=== PATIENT | female | born 1985 | race Caucasian/White ===

== ENCOUNTER 2017-03-24 06:10 | Emergency (ER) | payer BC ==
[~2017-03-24] VITALS: Ht 180.3 cm; Wt 81.6 kg
[2017-03-24 06:18] VITALS: BP 114/75
--- NOTE | 2017-03-24 06:23 | NUR ---
PT. AMBULATES TO ER BED 7
--- NOTE | 2017-03-24 06:24 | NUR ---
32Y/F PT. PRESENTS TO ED WITH C/O ABDOMINAL PAIN WITH N/V X 2 DAYS. NO DIARRHEA, NO FEVER. AAOX4, AMBULATORY WITH STEADY GAIT. RESPIRATIONS ROOM AIR, EVEN AND UNLABORED. SKIN WARM AND DRY. ABDOMEN ROUND, NON DISTENDED, PAIN 7/10. VSS, ER MD MADE AWARE OF PT. STATUS.
[2017-03-24] MEDS ORDERED: NACL 0.9% 500 ML IV ONE (06:36)
[2017-03-24] MEDS ORDERED: KETOROLAC 30 MG/ML VIAL IVP ONE (06:40)
[2017-03-24] MEDS ORDERED: ONDANSETRON 4 MG/2 ML VIAL IVP ONE (06:40)
[2017-03-24 06:52] LABS: HEMATOCRIT 40.3 % (36-48); HEMOGLOBIN 13.4 g/dL (12.0-16.0); MEAN CORPUSCULAR HEMOGLOBIN 30 pg (27-31); MEAN CORPUSCULAR HGB CONC 33 g/dL (33-37); MEAN CORPUSCULAR VOLUME 90 fL (80-94); PLATELET COUNT (AUTO) 236 K/uL (140-450); RED BLOOD CELL COUNT(AUTO) 4.48 MIL/uL (4.20-5.40); RED CELL DISTRIBUTION WIDTH 12.1 % (11.6-13.7); WHITE BLOOD COUNT (AUTO) 7.2 K/uL (4.8-10.8)
--- NOTE | 2017-03-24 07:02 | NUR ---
RECEIVED REPORT FROM BRIANA ARRIAGA.
[2017-03-24 07:08] LABS: ANION GAP 11.3 (8-16); CARBON DIOXIDE 24.8 mmol/L (21-32); CREATININE 0.7 mg/dL (0.6-1.3); POTASSIUM 4.1 mmol/L (3.5-5.1)
[2017-03-24 07:10] LABS: EOSINOPHILS % (MANUAL) 2 % (0-4); LYMPHOCYTES % (MANUAL) 42 % (20-46); MONOCYTES % (MANUAL) 8 % (5-12)
[2017-03-24 07:14] LABS: ALBUMIN 3.7 g/dL (3.4-5.0); TOTAL BILIRUBIN 0.8 mg/dL (0.0-1.0)
--- NOTE | 2017-03-24 07:40 | NUR ---
IV removed, catheter intact and site benign. Applied folded 4x4 gauze and tape to stop bleeding.
[2017-03-24 07:42] VITALS: BP 104/64
--- NOTE | 2017-03-24 07:42 | NUR ---
Patient discharged with v/s stable. Written and verbal after care instructions given and explained. Patient verbalized understanding. Ambulatory with steady gait. All questions addressed prior to discharge. Advised to follow up with PMD.
== END 2017-03-24 07:42 | disposition home or self-care (01) ==
LOC: MED 06:10
DX: R10.84 Generalized abdominal pain (principal); R11.2 Nausea with vomiting, unspecified; Z88.8 Allergy status to other drugs, medicaments and biological substances; Z91.013 Allergy to seafood
CPT/HCPCS: 36415; 80053; 81002; 81025; 83690; 85025; 96361; 96374; 96375; 99285; J1885; J2405; J7030

== ENCOUNTER 2018-06-02 01:31 | Emergency (ER) | payer BC ==
[~2018-06-02] VITALS: Ht 180.3 cm; Wt 82.1 kg
[2018-06-02 01:35] VITALS: BP 109/68
--- NOTE | 2018-06-02 01:43 | NUR ---
PT AMBULATED TO ED BED 08
[2018-06-02] MEDS ORDERED: KETOROLAC 30 MG/ML VIAL IM ONE (02:00)
--- NOTE | 2018-06-02 02:00 | NUR ---
33/F CAME IN WITH FAMILY/FRIEND, C/O 04/04 SUDDEN ONSET GENERALIZED BODY ACHES INCLUDING IN EARS AND HEADACHE, AND CHILLS, RUNNY NOSE X10 HRS. PT STATED SHE WAS AT WORK WHEN SYMPTOMS BEGAN. PT DENIES FEVER, N/V/D, DYSURIA. LUNG SOUNDS CLEAR BL. BS ACTIVE X4, ABD SOFT ROUND NONTENDER. AOX4, AMBULATORY, RR EVEN AND UNLABORED. DENIES MED HX, RX.
[2018-06-02] MEDS ORDERED: ACETAMIN/CODEINE 120/12MG-5ML 5 ML UDC PO ONE (02:05)
[2018-06-02 03:23] VITALS: BP 108/60
--- NOTE | 2018-06-02 03:23 | NUR ---
Patient discharged with v/s stable. Written and verbal after care instructions given and explained. Patient alert, oriented and verbalized understanding of instructions. Ambulatory with steady gait. All questions addressed prior to discharge. ID band removed. Patient advised to follow up with PMD. Rx of NAPROSYN, SUDAFED, DEBROX, TYLENOL #3 given. Patient educated on indication of medication including possible reaction and side effects. Opportunity to ask questions provided and answered.
== END 2018-06-02 03:23 | disposition home or self-care (01) ==
LOC: MED 01:31
DX: J06.9 Acute upper respiratory infection, unspecified (principal); B34.9 Viral infection, unspecified; Z91.041 Radiographic dye allergy status
CPT/HCPCS: 36415; 81002; 81025; 87081; 87804; 96372; 99284; J1885